=== PATIENT | male | born 1955 | race Caucasian/White ===

== ENCOUNTER 2021-12-20 15:26 | Outpatient (CLI) | payer MEDICARE, BC, SELFPAY | END 2021-12-20 15:27 | disposition home or self-care (01) | LOC: AMB 12-30 10:14 | PROVIDERS: Visit Provider Family Medicine | DX: R41.82 Altered mental status, unspecified (principal) | CPT/HCPCS: A0425; A0427 ==

== ENCOUNTER 2021-12-20 15:57 | Emergency (ER) | payer MEDICARE, BC, SELFPAY ==
[2021-12-20 15:59] VITALS: BP 119/51; PULSE 75; RESP 20; TEMP 36.3; O2SAT 99; BMI 32.3
--- NOTE | 2021-12-20 16:20 | ED.GENADULT ---
HPI - General Adult General Time Seen by Provider: 16:20 Date Seen: 12/20/21 Chief complaint: Weakness Stated complaint: Weakness Time Seen by Provider: 12/20/21 16:09 Source: patient, EMS and RN notes reviewed Mode of arrival: EMS Limitations: no limitations History of Present Illness HPI narrative: Patient is a 66-year-old male brought in by ambulance from [facility]. Patient states he was there to get some food. He was trying to find his wallet. He reportedly was found with his pants down. He states they were just falling down. He thinks he may have been confused at the time. He tells me he follow out of bed last night. He is not sure what happened. He states he fell onto hands and knees position. States he did not hit his head. He has no head pain, no headache, no visual change. Nursing staff did talk to [facility] where he resides in the apartments and they state his behavior is odd in this is typical for him. He does have underlying history of bipolar disorder and hypertension with a history of noncompliance with his hypertension. It also sounds like he has a component of BPH. He denies any pain at this time. Denies any focal neurologic deficits such as numbness weakness or tingling. He has had no abdominal pain, nausea vomiting, no diarrhea, no fevers or chills, no cough or cold symptoms. I did review our records here and we have seen him 1 other time in 06/14/2021. He came in with urinary concerns and found to be quite hypertensive at 256/122. Had not been taking his blood pressure medicines. He did get some IV labetalol and was advised to start back on his medications. He was also given Flomax and was treated for probable UTI. Related Data Home Medications Medication Instructions Recorded Confirmed amlodipine 10 mg tablet 10 mg PO DAILY 12/20/21 12/20/21 lisinopril 20 1 tab PO DAILY 12/20/21 12/20/21 mg-hydrochlorothiazide 12.5 mg tablet metoprolol succinate 25 mg 25 mg PO DAILY 12/20/21 12/20/21 tablet,extended release 24 hr tamsulosin 0.4 mg capsule 0.4 mg PO DAILY 12/20/21 12/20/21 Allergies Allergy/AdvReac Type Severity Reaction Status Date / Time No Known Drug Allergies Allergy Verified 12/20/21 16:06 Review of Systems Status of ROS: Reports: 10 or more systems reviewed and unremarkable except as noted in History and below [facility] Social History Smoking Status: Never smoker Do you use any of these nicotine containing products: None Second hand tobacco smoke exposure: No How often do you have a drink containing alcohol: monthly or less How many standard drinks containing alcohol do you have on a typical day: 1 or 2 How often do you have six or more drinks on one occasion: Never AUDIT-C Alcohol total score: 1 Non-prescribed substance use: denies use service: No Exam Const: Vital Signs, click to edit/add: Vital Signs - 24 hr 12/20/21 15:59 12/20/21 17:30 Temperature 97.4 F L Pulse Rate [Left P ulse Oximeter] 75 Respiratory Rate 20 Blood Pressure [Le ft Upper Arm] 119/51 L Pulse Oximetry 99 97 Oxygen Delivery Me thod Room Air Documenting provider has reviewed patient's vital signs: yes Common normals: no apparent distress, average body habitus, oriented x3, no limitations, healthy appearing, alert and well nourished General appearance: cooperative, comfortable and disheveled HENMT: Common normals: normocephalic, head/scalp atraumatic, hearing grossly normal bilaterally, external ears normal, EAC's normal, external nose normal, nasal mucous membranes and turbinates normal, moist oral mucous membranes, oropharynx normal, dentition normal (Do note some plaque buildup) and gingiva normal Head and scalp: normocephalic and atraumatic Nose: external nose normal and nasal mucous membranes and turbinates normal External ear: external ears normal External auditory canal: EAC's normal Eye: Common normals: PERRL, EOMs intact bilaterally, conjunctivae normal and no scleral icterus Conjunctiva: conjunctiva(e) normal Pupil: PERRL Neck & C-Spine: Common normals: full ROM, no lymphadenopathy, supple, no meningeal signs, no JVD and thyroid normal Thyroid: thyroid normal Resp: Common normals: normal respiratory effort, no retractions, no use of accessory muscles and clear to auscultation bilaterally Auscultation: clear to auscultation bilaterally Cardio: Common normals: no JVD, regular rate, regular rhythm, S1 normal heart sound, S2 normal heart sound, no gallops, no clicks and no murmurs Rate: regular rate Rhythm: regular rhythm Heart sounds: S1 normal and S2 normal GI: Common normals: Normal to inspection, nondistended, normoactive bowel sounds present, soft to palpation, non-tender, no hepatosplenomegaly and no masses Palpation: soft and no hepatosplenomegaly Extremity: Common normals: normal to inspection, full ROM, normal capillary refill, no joint enlargement, no clubbing, cyanosis or edema, no calf tenderness and no pedal edema Neuro: Radha Coma Scale: document GCS findings Radha coma scale eye opening: Spontaneous (4) Radha coma scale verbal response: Orientated (5) Tom[place] coma scale motor response: Obey commands (6) [place] coma scale total score: 15 Common normals: oriented x3, CN's II-XII intact bilaterally, moves all extremities, no focal motor deficits and no sensory deficits noted Sensorium/orientation: alert Meningeal signs: no meningeal signs Psych: Common normals: mental status grossly normal, cooperative, affect normal, speech normal, activity/motor behavior normal, denies hallucinations, denies homicidal ideation and denies suicidal ideation Appearance: disheveled Attitude: calm Activity/motor behavior: appropriate eye contact Speech: normal speech Course Course Hospital Course: Reported the from staff at [facility], patient is known to have some different or bizarre behaviors. We really do not know him all that well. I would certainly favor reviewing the head CT just to ensure no intracranial changes given report of recent falls both by nursing staff and himself. He also agrees to have some lab work done. We will guide therapy accordingly, he is currently hemodynamically stable, nonfocal exam. Reevaluation(s) Reevaluation #1: Patient's bladder scan did not show any urinary retention. He had just voided. His urinalysis is not indicative of any infection. We did review his elevated labs here with a creatinine and glucose. I find no evidence of anything requiring further emergent intervention or workup at this time. He states he has a followup in clinic coming up within the next week or so, that should be sufficient to recheck him. I do not feel comfortable just pulling him off his antihypertensive medicine as when he came in off of that in May, his blood pressures were extremely high. His creatinine level is not high enough at this time that I think he needs to be emergently pulled off his lisinopril when he has close clinic follow-up. Time: 19:27 Vital Signs Vital signs: Initial Vital Signs Temperature 97.4 F L 12/20/21 15:59 Temperature Source Temporal Artery Scan 12/20/21 15:59 Pulse Rate 75 12/20/21 15:59 Respiratory Rate 20 12/20/21 15:59 Blood Pressure 119/51 L 12/20/21 15:59 Blood Pressure Mean 73 12/20/21 15:59 Blood Pressure Position Supine 12/20/21 15:59 Pulse Oximetry 99 12/20/21 15:59 Oxygen Delivery Method 12/20/21 15:59 Vital Signs Temperature 97.4 F L 12/20/21 15:59 Pulse Rate 75 12/20/21 15:59 Respiratory Rate 20 12/20/21 15:59 Blood Pressure 119/51 L 12/20/21 15:59 Pulse Oximetry 99 12/20/21 15:59 Oxygen Delivery Method 12/20/21 15:59 Temperature 97.4 F L 12/20/21 15:59 Pulse Rate 75 12/20/21 15:59 Respiratory Rate 20 12/20/21 15:59 Blood Pressure 119/51 L 12/20/21 15:59 Pulse Oximetry 97 12/20/21 17:30 Oxygen Delivery Method 12/20/21 15:59 Medical Decision Making Lab Data Labs: Lab Results 12/20/21 12/20/21 12/20/21 Range/Units 16:37 17:16 17:16 WBC 10.48 (4.50-11.00) K/uL RBC 4.40 (4.30-5.90) m/uL Hgb 12.6 L (13.5-17.5) gm/dL Hct 38.7 (37.0-53.0) % MCV 88 (80-100) fL MCH 29 (26-34) pg MCHC 33 (32-36) gm/dL RDW Coeff of [place] 13.3 (11.5-15.5) % Plt Count 258 (140-440) K/uL Neut % (Auto) 85.6 H (42.0-72.0) % Lymph % (Auto) 6.7 L (20-44) % [place] % (Auto) 5.9 (0.0-11.0) % Eos % (Auto) 0.9 (0.0-7.0) % Baso % (Auto) 0.7 (0.0-3.0) % Neut # (Auto) 9.00 H (1.7-7.0) K/uL Lymph # (Auto) 0.70 L (0.90-2.90) K/uL [place] # (Auto) 0.60 (0.00-0.90) K/UL Eos # (Auto) 0.09 (0.00-0.50) K/uL Baso # (Auto) 0.07 (0.00-0.30) K/uL Abs Immat Gran (auto) 0.02 (0.00-0.30) K/uL Sodium 140 (135-149) mmol/L Potassium 4.6 (3.6-5.1) mmol/L Chloride 101 (96-114) mmol/L Carbon Dioxide 25 (20-32) mmol/L BUN 43 H (7-30) mg/dL Creatinine 2.5 H (0.5-1.5) mg/dL Estimated Creat Clear 26.23 Estimated GFR 28 ml/min Glucose 170 H (60-115) mg/dL Calcium 9.9 (8.4-10.6) mg/dL Total Bilirubin 0.4 (0.1-1.5) mg/dL AST 22 (12-35) U/L ALT 19 (4-50) U/L Alkaline Phosphatase 67 (40-150) U/L Total Protein 8.3 (6.0-8.3) g/dL Albumin 4.7 (3.3-5.0) g/dL Urine Color Yellow (Yellow) Urine Appearance Clear (Clear) Urine pH 5.5 (5.0-8.5) Ur Specific [place] 1.025 (1.000-1.030) Urine Protein Negative (Negative) Urine Glucose (UA) Negative (Negative) Urine Ketones Negative (Negative) Urine Blood Negative (Negative) Urine Nitrite Negative (Negative) Urine Bilirubin Negative (Negative) Urine Urobilinogen 0.2 (0.2-1.0) Ur Leukocyte Esterase Negative (Negative) Urine Opiates Screen (Negative) Ur Oxycodone Screen (Negative) Urine Methadone Screen (Negative) Ur Propoxyphene Screen (Negative) Ur Barbiturates Screen (Negative) U Tricyclic Antidepress (Negative) Ur Phencyclidine Scrn (Negative) Ur Amphetamines Screen (Negative) U Methamphetamines Scrn (Negative) U Benzodiazepines Scrn (Negative) Urine Cocaine Screen (Negative) U Marijuana (THC) Screen (Negative) Ur Drug Screen Comment Ethyl Alcohol < 0.01 L (0.01-0.03) % POC Troponin I (0.01-0.04) ng/ml 12/20/21 12/20/21 Range/Units 17:16 18:38 WBC (4.50-11.00) K/uL RBC (4.30-5.90) m/uL Hgb (13.5-17.5) gm/dL Hct (37.0-53.0) % MCV (80-100) fL MCH (26-34) pg MCHC (32-36) gm/dL RDW Coeff of [place] (11.5-15.5) % Plt Count (140-440) K/uL Neut % (Auto) (42.0-72.0) % Lymph % (Auto) (20-44) % [place] % (Auto) (0.0-11.0) % Eos % (Auto) (0.0-7.0) % Baso % (Auto) (0.0-3.0) % Neut # (Auto) (1.7-7.0) K/uL Lymph # (Auto) (0.90-2.90) K/uL [place] # (Auto) (0.00-0.90) K/UL Eos # (Auto) (0.00-0.50) K/uL Baso # (Auto) (0.00-0.30) K/uL Abs Immat Gran (auto) (0.00-0.30) K/uL Sodium (135-149) mmol/L Potassium (3.6-5.1) mmol/L Chloride (96-114) mmol/L Carbon Dioxide (20-32) mmol/L BUN (7-30) mg/dL Creatinine (0.5-1.5) mg/dL Estimated Creat Clear Estimated GFR ml/min Glucose (60-115) mg/dL Calcium (8.4-10.6) mg/dL Total Bilirubin (0.1-1.5) mg/dL AST (12-35) U/L ALT (4-50) U/L Alkaline Phosphatase (40-150) U/L Total Protein (6.0-8.3) g/dL Albumin (3.3-5.0) g/dL Urine Color (Yellow) Urine Appearance (Clear) Urine pH (5.0-8.5) Ur Specific [place] (1.000-1.030) Urine Protein (Negative) Urine Glucose (UA) (Negative) Urine Ketones (Negative) Urine Blood (Negative) Urine Nitrite (Negative) Urine Bilirubin (Negative) Urine Urobilinogen (0.2-1.0) Ur Leukocyte Esterase (Negative) Urine Opiates Screen Negative (Negative) Ur Oxycodone Screen Negative (Negative) Urine Methadone Screen Negative (Negative) Ur Propoxyphene Screen Negative (Negative) Ur Barbiturates Screen Negative (Negative) U Tricyclic Antidepress Negative (Negative) Ur Phencyclidine Scrn Negative (Negative) Ur Amphetamines Screen Negative (Negative) U Methamphetamines Scrn Negative (Negative) U Benzodiazepines Scrn Negative (Negative) Urine Cocaine Screen Negative (Negative) U Marijuana (THC) Screen Negative (Negative) Ur Drug Screen Comment See Note Ethyl Alcohol (0.01-0.03) % POC Troponin I 0.00 L (0.01-0.04) ng/ml Imaging Data CT scan - head: Attestation: I have reviewed the pertinent imaging results. Radiologist's impression: Patient: JOSH CRAWFORD Facility:?[facility] Patient ID:?[id number] Site Patient ID:?[id number]. Site :?[id number] Study:?CT Head W/O-12/20/2021 5:31:46 PM Ordering Physician:Yasmani Gallegos Final Report: INDICATION: Falls, confusion TECHNIQUE: CT head without contrast. COMPARISON: None FINDINGS: CSF spaces: Within normal limits for age. Brain parenchyma: The mccray-white differentiation is normal. No sign of mass, hemorrhage, or midline shift. Skull base and calvarium: Ethmoid, frontal and right maxillary sinus disease. Visualized orbits are grossly unremarkable. No skull fractures. IMPRESSION: No acute intracranial abnormalities. Ethmoid, frontal right maxillary sinus disease. Dictated by Armin Campos MD @ 12/20/2021 5:41:35 PM Please note that all CT scans at this facility use dose modulation, iterative reconstruction, and/or weight-based dosing when appropriate to reduce radiation dose to as low as reasonably achievable. Dictated by: Armin Campos MD @ 12/20/2021 17:41:39 (Electronic Signature) ECG Data Attestation: I personally reviewed and interpreted this ECG as follows: (Significant artifact, sinus rhythm 80 beats per minute. Due to artifact, very difficult EKG to interpret.) Prior ECG tracings: not available for review Critical Care Time Critical Care Time Critical Care Time: No Discharge Plan Discharge Clinical Impression: Elevated serum glucose, Elevated serum creatinine, Episode of confusion Condition: Stable Instructions: Acute Kidney Injury (DC), Chronic Kidney Disease (ED) Additional Instructions: Need to keep her upcoming appointment with your primary care provider, your kidney functions absolutely need to be rechecked at that visit. Your creatinine today was 2.5, this seems to be much higher than when it was checked here in May of 2021 and was 1. You need to drink adequate water to keep your kidneys hydrated. It may be necessary to change you from lisinopril if this is a new finding. I will need the input of your primary care provider to help you further figure this out. Your nonfasting glucose was in the 170s here, recommend your primary care provider rescreening you with fasting labs or a hemoglobin A1c to see if you are perhaps becoming diabetic. There was no evidence of any urinary obstruction from the prostate on testing here. Prescriptions: No Action amlodipine 10 mg tablet 10 mg PO DAILY tamsulosin 0.4 mg capsule 0.4 mg PO DAILY lisinopril-hydrochlorothiazide 20-12.5 mg tablet 1 tab PO DAILY Label Comments: TAKE 2 TABLETS BY MOUTH EVERY DAY metoprolol succinate 25 mg tablet extended release 24 hr 25 mg PO DAILY Stand Alone Forms: [employer] Info Instructions
--- NOTE | 2021-12-20 16:53 | CRLHL7_ITS ---
For Patients: As a result of the Cures Act, medical imaging exams and procedure reports are released immediately into your electronic medical record. You may view this report before your referring provider. If you have questions, please contact your health care provider. INDICATION: Falls, confusion TECHNIQUE: CT head without contrast. COMPARISON: None FINDINGS: CSF spaces: Within normal limits for age. Brain parenchyma: The mccray-white differentiation is normal. No sign of mass, hemorrhage, or midline shift. Skull base and calvarium: Ethmoid, frontal and right maxillary sinus disease. Visualized orbits are grossly unremarkable. No skull fractures. IMPRESSION: No acute intracranial abnormalities. Ethmoid, frontal right maxillary sinus disease. Dictated by Armin Campos MD @ 12/20/2021 5:41:35 PM Please note that all CT scans at this facility use dose modulation, iterative reconstruction, and/or weight-based dosing when appropriate to reduce radiation dose to as low as reasonably achievable. Dictated by: Armin Campos MD @ 12/20/2021 17:41:39 (Electronically Signed)
[2021-12-20 17:30] VITALS: O2SAT 97
[2021-12-20 17:37] LABS: Basophils Absolute Auto 0.07 K/uL (0.00-0.30); Basophils Percent Auto 0.7 % (0.0-3.0); Eosinophils Absolute Auto 0.09 K/uL (0.00-0.50); Eosinophils Percent Auto 0.9 % (0.0-7.0); Hematocrit 38.7 % (37.0-53.0); Hemoglobin* 12.6 gm/dL (13.5-17.5); Immature Granulocytes Abs Auto 0.02 K/uL (0.00-0.30); Lymphocytes Percent Auto 6.7 % (20-44); Mean Corpuscular HGB Conc 33 gm/dL (32-36); Mean Corpuscular Hemoglobin 29 pg (26-34); Mean Corpuscular Volume 88 fL (80-100); Monocytes Percent Auto 5.9 % (0.0-11.0); Neutrophils Percent Auto 85.6 % (42.0-72.0); Platelet Count* 258 K/uL (140-440); RDW Coefficient of Variation % 13.3 % (11.5-15.5); White Blood Count* 10.48 K/uL (4.50-11.00)
[2021-12-20 17:43] LABS: Slide Review Reflex No
[2021-12-20 17:58] LABS: Albumin* 4.7 g/dL (3.3-5.0); Chloride* 101 mmol/L (96-114)
[2021-12-20 17:59] LABS: Potassium* 4.6 mmol/L (3.6-5.1); Sodium* 140 mmol/L (135-149)
[2021-12-20 18:01] LABS: Alkaline Phosphatase* 67 U/L (40-150); Aspartate Amino Transferase* 22 U/L (12-35); Bilirubin Total* 0.4 mg/dL (0.1-1.5); Blood Urea Nitrogen* 43 mg/dL (7-30); Carbon Dioxide* 25 mmol/L (20-32); Creatinine* 2.5 mg/dL (0.5-1.5); Est. Creatinine Clearance* 26.23; Estimated Glomerular Filt Rate 28 ml/min; Glucose* 170 mg/dL (60-115); Total Protein* 8.3 g/dL (6.0-8.3)
[2021-12-20 18:02] LABS: Alanine Aminotransferase* 19 U/L (4-50); Calcium* 9.9 mg/dL (8.4-10.6); Ethanol* < 0.01 % (0.01-0.03)
--- NOTE | 2021-12-20 18:38 | ED.NURSE ---
UA sent. Pt able to ambulate independently to BR, tolerates well with steady gait.
[2021-12-20 18:57] LABS: Amphetamine Screen Urine Negative (Negative); Barbiturate Screen Urine Negative (Negative); Benzodiazepines Screen Urine Negative (Negative); Cannabinoid Screen Urine Negative (Negative); Cocaine Screen Urine Negative (Negative); Methadone Screen Urine Negative (Negative); Methamphetamines Screen Urine Negative (Negative); Opiate Screen Urine Negative (Negative); Oxycodone Screen Urine Negative (Negative); Phencyclidine Screen Urine Negative (Negative); Tricyclic Antidepressant Urine Negative (Negative)
--- NOTE | 2021-12-20 19:04 | ED.NURSE ---
Report given to RUBY Elizabeth.
[2021-12-20 19:14] LABS: Appearance Urine Clear (Clear); Bilirubin Urine Negative (Negative); Blood Urine Negative (Negative); Color Urine Yellow (Yellow); Glucose Urine Negative (Negative); Ketones Urine Negative (Negative); Leukocyte Esterase Urine Negative (Negative); Nitrite Urine Negative (Negative); Protein Urine Negative (Negative); Specific Gravity Urine 1.025 (1.000-1.030); Urobilinogen Urine 0.2 (0.2-1.0); pH Urine 5.5 (5.0-8.5)
== END 2021-12-20 19:37 | disposition home or self-care (01) ==
PROVIDERS: Emergency Provider Family Medicine
DX: R73.9 Hyperglycemia, unspecified (principal); R79.89 Other specified abnormal findings of blood chemistry; R41.0 Disorientation, unspecified
CPT/HCPCS: 36415; 70450; 80053; 80306; 81003; 82077; 84484; 85025; 93005; 94761; 99284